=== PATIENT | female | born 1965 | race Caucasian/White ===

== ENCOUNTER 2016-08-29 17:53 | Emergency (ER) | payer BC ==
[2016-08-29 18:55] LABS: UA SPECIFIC GRAVITY >=1.030 (1.005-1.035); microscopic required? YES; urine erythrocyte NEGATIVE (NEGATIVE)
[2016-08-29 20:58] VITALS: BP 109/70
== END 2016-08-29 20:58 | disposition home or self-care (01) ==
LOC: ED 17:53
PROVIDERS: Emergency Medicine
DX: N39.0 Urinary tract infection, site not specified (principal); R51 Headache; M54.2 Cervicalgia; Z85.3 Personal history of malignant neoplasm of breast; Z88.8 Allergy status to other drugs, medicaments and biological substances; Z98.890 Other specified postprocedural states
CPT/HCPCS: J0780; J1200; J2270; J7030

== ENCOUNTER 2018-11-21 09:36 | Emergency (ER) | payer BC ==
[~2018-11-21] VITALS: Ht 165.1 cm; Wt 75.3 kg
[2018-11-21 09:40] VITALS: Ht 165.1 cm; Wt 75.3 kg
[2018-11-21 11:25] VITALS: BP 140/87
== END 2018-11-21 11:25 | disposition home or self-care (01) ==
LOC: ED 09:36
DX: R29.818 Other symptoms and signs involving the nervous system (principal)
CPT/HCPCS: 82962